=== PATIENT | female | born 1970 | race American Indian/Alaskan Native ===

== ENCOUNTER 2016-08-10 09:10 | Outpatient (CLI) | payer OTHER ==
--- NOTE | 2016-08-10 13:12 | Mammography Report ---
LEFT DIGITAL DIAGNOSTIC MAMMOGRAM with CAD: 08/10/16 09:10:00 CLINICAL: Follow-up asymmetries.. COMPARISON:02/07/16 FINDINGS: The breast is heterogeneously dense, which may obscure small masses. Previously described inferior asymmetries are stable. A previously identified low density circumscribed nodule in the outer breast is no longer identified on CC view. IMPRESSION: Stable mammographic asymmetries.We were not able to accommodate her for a left breast ultrasound on the same day as this mammogram but she should return for an ultrasound examination of the left breast BI-RADS CATEGORY: 0--Needs Additional Imaging RECOMMENDATION: Return for a right breast ultrasound. ACR BI-RADS MAMMOGRAPHIC CODES: 0 = Needs additional imaging evaluation; 1 = Negative; 2 = Benign; 3 = Probably benign; 4 = Suspicious; 5 = Malignant; 6 = Known biopsy-proven malignancy COMMENT: 1. Dense breast tissue, i.e., adenosis, fibrocystic changes, etc., may obscure an underlying neoplasm. 2. Approximately 10% of cancers are not detected with mammography. 3. A negative mammography report should not delay biopsy if a clinically suspicious mass is present. COMMENT: Patient follow-up letters are generated by our [facility] [facility] application.
== END 2016-08-10 09:11 | disposition home or self-care (01) ==
LOC: SPVWC 09:10
PROVIDERS: ATTEND Family Medicine
DX: R92.8 Other abnormal and inconclusive findings on diagnostic imaging of breast (principal)
CPT/HCPCS: G0206-LT

== ENCOUNTER 2017-07-29 09:22 | Outpatient (CLI) | payer OTHER ==
--- NOTE | 2017-07-30 11:34 | Mammography Report ---
BILATERAL DIGITAL SCREENING MAMMOGRAM with CAD : 07/29/17 09:22:00 CLINICAL: Routine screening. COMPARISON:01/07/16 bilateral screening and left mammograms from 02/07/16 and 08/10/16. FINDINGS: The breasts are heterogeneously dense, which may obscure small masses.A previously workup well-circumscribed left breast mass at 7 o'clock is stable and was thought to be probably benign by ultrasound 08/13/16. No new mass, architectural distortion or suspicious calcifications. IMPRESSION: No mammographic evidence of malignancy. BI-RADS CATEGORY: 2 -- Benign RECOMMENDATION: Routine mammographic screening in one year. COMMENT: Patient follow-up letters are generated by our [employer] application.
== END 2017-07-29 09:23 | disposition home or self-care (01) ==
LOC: SPVWC 09:22
PROVIDERS: ATTEND Physician Assistant
DX: Z12.31 Encounter for screening mammogram for malignant neoplasm of breast (principal)
CPT/HCPCS: 77067

== ENCOUNTER 2019-04-05 09:35 | Outpatient (CLI) | payer OTHER ==
--- NOTE | 2019-04-05 15:48 | Mammography Report ---
RIGHT DIGITAL DIAGNOSTIC MAMMOGRAM WITH CAD -- 04/05/2019 RIGHT COMPLETE BREAST ULTRASOUND INDICATION: Recalled for asymmetries. TECHNIQUE: Digital right mammographic imaging was performed. Spot compression views were obtained. C omplete ultrasound of all four (4) quadrants was performed. This examination was interpreted with the benefit of Computer-Aided Detection (CAD) analysis. COMPARISON: 03/21/2019 FINDINGS: Breast Density: The breast is heterogeneously dense, which may obscure small masses. MAMMOGRAPHIC FINDINGS: Partial effacement of previously identified asymmetries. ULTRASOUND FINDINGS: Complete sonographic evaluation of all 4 quadrants and retroareolar region was p erformed. Mass, cyst or suspicious shadowing. IMPRESSION: Negative mammogram and negative right breast ultrasound. Follow up recommendation: Routine yearly BI-RADS Category 1: Negative. A "normal" or negative report should not discourage follow up or biopsy of a clinically significant f inding. A written summary of these findings will be mailed to the patient. The patient will be entered into a mammography reporting system which will generate a reminder letter for the patient's next appointmen t at the appropriate interval. According to the [employer], yearly mammograms are recommended starting at age 40 and continuing as long as a woman is in good health. Breast MRI is recommended for women with an lawson roximately 20-25% or greater lifetime risk of breast cancer, including women with a strong family his tory of breast or ovarian cancer and women who have been treated for Hodgkin's disease. Signer Name: Oli Gambino MD Signed: 04/05/2019 3:43 PM Workstation Name: [id number]
== END 2019-04-05 09:36 | disposition home or self-care (01) ==
LOC: SPVWC 09:35
PROVIDERS: ATTEND Family Medicine
DX: R92.8 Other abnormal and inconclusive findings on diagnostic imaging of breast (principal)